=== PATIENT | female | born 1955 | race Caucasian/White ===

== ENCOUNTER → 2017-06-10 | Outpatient (CLI) | payer MEDICARE, SELFPAY ==
[~2017-06-10] MED LIST: ALBU90OI INH; ALEN70; ASPI325 PO; BUPR150ER PO; COMFORT PAC-MEL15 MG; CYCL10 PO; DULERA 100 MCG/13 GM INH; FIBER GUMMIES1 EACH PO; FLUT.05NI; HYDCHL25; LAVAP17G; LISHYD1012 PO; LISI5 PO; LOSA50; MONT10T PO; Omeprazole20 M1; Prilosec Otc20 MG; SIMV10 PO; WOMEN'S DAILY1 EACH PO; [UNRECOGNIZED DRUG - OTHER]
== END | disposition home or self-care (01) ==
LOC: LAB EV 14:18
DX: J02.9 Acute pharyngitis, unspecified (principal)
CPT/HCPCS: 87070

== ENCOUNTER 2017-06-18 11:57 | Day surgery (SDC) | payer MEDICARE, SELFPAY ==
[~2017-06-18] VITALS: Ht 172.7 cm; Wt 106.2 kg
[~2017-06-18 11:57] MED LIST changes: -ALEN70; -COMFORT PAC-MEL15 MG; -HYDCHL25; -LOSA50; -Omeprazole20 M1
[2017-06-18] MEDS ORDERED: ALEN70 (12:40)
[2017-06-18] MEDS ORDERED: COMFORT PAC-MEL15 MG (12:40)
[2017-06-18] MEDS ORDERED: HYDCHL25 (12:41)
[2017-06-18] MEDS ORDERED: Omeprazole20 M1 (12:41)
[2017-06-18] MEDS ORDERED: LOSA50 (12:42)
== END 2017-06-18 16:50 | disposition home or self-care (01) ==
LOC: ORSCSDS 11:57
PROVIDERS: Podiatrist Foot & Ankle Surgery
PROC: 0QBP0ZZ Excision of Left Metatarsal, Open Approach (ICD-10-PCS; principal; 2017-06-18 13:15)
PROC: 0JBR0ZX Excision of Left Foot Subcutaneous Tissue and Fascia, Open Approach, Diagnostic (ICD-10-PCS; principal; 2017-06-18 13:15)
DX: M67.472 Ganglion, left ankle and foot (principal); M77.32 Calcaneal spur, left foot; I10 Essential (primary) hypertension; E78.5 Hyperlipidemia, unspecified; G47.33 Obstructive sleep apnea (adult) (pediatric); I25.10 Atherosclerotic heart disease of native coronary artery without angina pectoris; J44.9 Chronic obstructive pulmonary disease, unspecified; E03.9 Hypothyroidism, unspecified; K21.9 Gastro-esophageal reflux disease without esophagitis; Z87.891 Personal history of nicotine dependence; Z79.899 Other long term (current) drug therapy
CPT/HCPCS: 88304; J0171; J0690; J1100; J1885; J2250; J2405; J3010; J7120

== ENCOUNTER → 2018-08-26 | Outpatient (CLI) | payer MEDICARE ==
[~2018-08-26] MED LIST changes: +ALEN70; +COMFORT PAC-MEL15 MG; +HYDCHL25; +LOSA50; +Omeprazole20 M1
== END | disposition home or self-care (01) ==
LOC: LAB 16:54 → LAB SHORT 16:54
DX: J02.9 Acute pharyngitis, unspecified (principal)
CPT/HCPCS: 87070

== ENCOUNTER 2019-03-09 09:09 | Day surgery (SDC) | payer MEDICARE ==
[~2019-03-09] VITALS: Ht 170.2 cm; Wt 106.1 kg
--- NOTE | 2019-03-09 10:33 | NUR ---
03/09/19 1033 Lizzeth Dominguez LIDOCAINE 4% NEBULIZER 5CC'S GIVEN PRE PROCEDURE ORDERED BY MD CRAWLEY.
== END 2019-03-09 11:43 | disposition home or self-care (01) ==
LOC: ORSCSDS 09:09
PROVIDERS: Student in an Organized Health Care Education/Training Program
PROC: 0DB78ZX Excision of Stomach, Pylorus, Via Natural or Artificial Opening Endoscopic, Diagnostic (ICD-10-PCS; principal; 2019-03-09 10:30)
PROC: 0DB48ZX Excision of Esophagogastric Junction, Via Natural or Artificial Opening Endoscopic, Diagnostic (ICD-10-PCS; principal; 2019-03-09 10:30)
DX: K21.9 Gastro-esophageal reflux disease without esophagitis (principal); R13.10 Dysphagia, unspecified; K22.70 Barrett's esophagus without dysplasia; K31.7 Polyp of stomach and duodenum; K29.70 Gastritis, unspecified, without bleeding; I49.9 Cardiac arrhythmia, unspecified; R00.1 Bradycardia, unspecified; I25.10 Atherosclerotic heart disease of native coronary artery without angina pectoris; J44.9 Chronic obstructive pulmonary disease, unspecified; Z87.891 Personal history of nicotine dependence; G47.33 Obstructive sleep apnea (adult) (pediatric); E78.5 Hyperlipidemia, unspecified; E66.01 Morbid (severe) obesity due to excess calories; Z68.36 Body mass index [BMI] 36.0-36.9, adult; Z79.899 Other long term (current) drug therapy
CPT/HCPCS: 88305; 88342; J2001; J2704; J7120

== ENCOUNTER 2020-03-13 07:34 | Day surgery (SDC) | payer MEDICARE ==
[~2020-03-13] VITALS: Ht 172.7 cm; Wt 109.0 kg
--- NOTE | 2020-03-13 07:50 | NUR ---
History, Chart, Medications and Allergies reviewed before start of procedure. Patient states colon prep results clear. Patient States Post-Procedure ride home has been arranged.
--- NOTE | 2020-03-13 08:37 | NUR ---
03/13/20 0837 Janice Krueger History, Chart, Medications and Allergies reviewed before start of procedure.Patient confirms NPO status and agrees with scheduled surgery.3-LEAD EKG REVIEWED WITH PHYSICIAN PRIOR TO START OF PROCEDURE.MONITOR INTACT WITH CONTINUOUS PULSE OXIMETRY AND INTERMITTENT BP.
--- NOTE | 2020-03-13 09:31 | NUR ---
Discharge instructions reviewed with patient. Patient verbalizes understanding. Copy given to patient to take home. PT TOLERATED APPLE JUICE WELL. SWELLING IMPROVED TO IV INFILTRATED SITE. ENCOURAGED PT TO USE HEAT IF DESIRED FOR SWELLING. Discharged via wheelchair to private car for ride home.
== END 2020-03-13 09:35 | disposition home or self-care (01) ==
LOC: ORSCMMR 07:34 → ORD 08:30 → ORSCMMR 08:30
PROVIDERS: Internal Medicine Gastroenterology
PROC: 0DBM8ZX Excision of Descending Colon, Via Natural or Artificial Opening Endoscopic, Diagnostic (ICD-10-PCS; principal; 2020-03-13 08:30)
PROC: 0DBL8ZX Excision of Transverse Colon, Via Natural or Artificial Opening Endoscopic, Diagnostic (ICD-10-PCS; principal; 2020-03-13 08:30)
DX: Z12.11 Encounter for screening for malignant neoplasm of colon (principal); Z86.010 Personal history of colon polyps; D12.4 Benign neoplasm of descending colon; J45.909 Unspecified asthma, uncomplicated; I10 Essential (primary) hypertension; E78.00 Pure hypercholesterolemia, unspecified; K22.70 Barrett's esophagus without dysplasia; Z79.899 Other long term (current) drug therapy; Z87.891 Personal history of nicotine dependence; E66.01 Morbid (severe) obesity due to excess calories; Z68.36 Body mass index [BMI] 36.0-36.9, adult
CPT/HCPCS: 88305; J2250; J3010; J7120

== ENCOUNTER 2020-03-28 11:13 | Day surgery (SDC) | payer MEDICARE ==
[~2020-03-28] VITALS: Ht 170.2 cm; Wt 107.0 kg
--- NOTE | 2020-03-28 02:50 | NUR ---
PATIENT WITH NAUSEA AND CONTINUED EPIGASTRIC AND SUB STERNAL CHEST PAIN, /10. ENGINEERING FACULTY NOTIFIED, STARTED THE IV PPI TONIGHT AND GAVE IV PHENERGAN FOR NAUSEA. PATIENT WAS ABLE TO SLEEP FOR APPROX 6.5 HOURS. SHE CONTINUES TO HAVE THE SAME PAIN. HER LT CHEST WALL IS FREE FROM VISIBLE HEMATOMA AND BLEEDING. PRESSURE DRESSING REMAINS ON THE PACER SITE. CALL LIGHT IN REACH. NO ACUTE CHANGES.
[~2020-03-28 11:13] MED LIST changes: +CALCIUM 500 +1 EAC3 PO; +FLONASE ALLERG9.9 M2; -HYDCHL25; +HYDCHL25 PO; -LOSA50; +LOSA50 PO; -Omeprazole20 M1; +Omeprazole20 M1 PO; +VITAMIN D325 MC3 PO
--- NOTE | 2020-03-28 15:13 | NUR ---
PT MEDICATED POST PACEMAKER INSERTION WITH MORPHINE 2 MG IVP FOR 9/10 CHEST PAIN WITH INSPIRATION. PLAN TO TRANSFER PT TO SURGICAL UNIT FOR OBSERVATION OVER NIGHT. LEFT ARM PLACED INTO SLING, ARM ELEVATED WITH SUPPORT OF PILLOW. PRESSURE DRESSING IN PLACE TO LEFT CHEST, WHERE PACEMAKER WAS PLACED.
--- NOTE | 2020-03-28 18:17 | NUR ---
SHIFT SUMMARY PT A&OX4, VSS, S/P DUAL CHAMBER PACEMAKER PLACED, DRESSING IN PLACE, SLING ON ARM, ELEVATED ON PILLOW. PAIN TREATED W/5 MG NORCO; PT STILL REPORTS 7/10 CHEST PAIN; DR AWARE. BRENDA SIPS, WAVES OF NAUSEA, NO EMESIS, ZOFRAN GIVEN PER EMAR X1. AMB SBA TO BRP, VOIDING WELL. WILL REPORT TO ONCOMING NOC RN.
[2020-03-29] MEDS ORDERED: Norco 5-325 Ta1 EACH PO (13:21)
[2020-03-29] MEDS ORDERED: ONDA4ODT MM (16:07)
--- NOTE | 2020-03-29 17:09 | NUR ---
DISCHARGE SUMMARY PT A&OX4, VSS, PAIN MANAGED WITH 5 MG NORCO, BRENDA PO, OCC NAUSEA TX'D WITH ZOFRAN PRN, LEFT FLOOR VIA WC WITH WELFARE ADMINISTRATOR TO GO HOME WITH WITH ALL PERSONAL POSSESSIONS INCLUDING DC INSTRUCTIONS INCLUDING DR WILCOX PACEMAKER IMPLANT PATIENT INSTRUCTIONS, 1 NARC SCRIPT, ZOFRAN SCRIPT FAXED TO [facility]. PT REP UNDERSTANDING THOSE INSTRUCTIONS. IV DC'D.
== END 2020-03-29 16:41 | disposition home or self-care (01) ==
LOC: MHTC 11:13 → PCU 14:45 → SURS 14:54 → MHTC 03-29 16:41
DX: I49.5 Sick sinus syndrome (principal); I10 Essential (primary) hypertension; E03.9 Hypothyroidism, unspecified; G47.33 Obstructive sleep apnea (adult) (pediatric); Z91.19 Patient's noncompliance with other medical treatment and regimen; Z79.899 Other long term (current) drug therapy; Z87.891 Personal history of nicotine dependence; Z88.1 Allergy status to other antibiotic agents; Z88.5 Allergy status to narcotic agent; Z88.8 Allergy status to other drugs, medicaments and biological substances
CPT/HCPCS: 33208; 71045; 71046; 76937; 93005; 93010; 99152; 99153; A9270-GY; C1785; C1894; C1898; J1644; J2250; J2270; J2405; J2550; J3010; J3370; J7040

== ENCOUNTER 2020-08-26 07:48 | Day surgery (SDC) | payer MEDICARE ==
[~2020-08-26] VITALS: Ht 172.7 cm; Wt 107.5 kg
[~2020-08-26 07:48] MED LIST changes: +Norco 5-325 Ta1 EACH PO; +ONDA4ODT MM
[2020-08-26] MEDS ORDERED: AMLO5 (08:31)
[2020-08-26] MEDS ORDERED: XYLIMELTS550 MG (08:33)
--- NOTE | 2020-08-26 11:01 | NUR ---
08/26/20 1101 Grace Torres PATIENT TO PACU VIA GURNEY. SHE OPENS EYES WHEN SPOKEN TO AND ANSWERS QUESTIONS APPROPRIATELY. SHE DENIES PAIN OR NAUSEA AT THIS TIME. PATIENT GOES BACK TO SLEEP AND SNORES WHEN NOT BEING STIMULATED
== END 2020-08-26 12:15 | disposition home or self-care (01) ==
LOC: ORSCSDS 07:48
PROVIDERS: Otolaryngology
PROC: 0GTH0ZZ Resection of Right Thyroid Gland Lobe, Open Approach (ICD-10-PCS; principal; 2020-08-26 09:00)
DX: E04.1 Nontoxic single thyroid nodule (principal); I10 Essential (primary) hypertension; J44.9 Chronic obstructive pulmonary disease, unspecified; K21.9 Gastro-esophageal reflux disease without esophagitis; E66.01 Morbid (severe) obesity due to excess calories; Z68.36 Body mass index [BMI] 36.0-36.9, adult; Z79.899 Other long term (current) drug therapy; Z87.891 Personal history of nicotine dependence
CPT/HCPCS: 88307; J1100; J2250; J2405; J2704; J2710; J3010; J7120

== ENCOUNTER → 2021-04-16 | Outpatient (CLI) | payer MEDICARE ==
[~2021-04-16] MED LIST changes: +AMLO5; +XYLIMELTS550 MG
== END ==
LOC: LAB 15:39 → LAB SHORT 15:39
DX: R22.41 Localized swelling, mass and lump, right lower limb (principal); D23.71 Other benign neoplasm of skin of right lower limb, including hip
CPT/HCPCS: 88305; 88312

== ENCOUNTER 2022-01-31 16:53 | Emergency (ER) | payer OTHER ==
[~2022-01-31] VITALS: Ht 170.2 cm; Wt 93.0 kg
[~2022-01-31 16:53] MED LIST changes: +CIPR500 PO; +HYDR1TAB94 PO; +TAMS.4ER PO
[2022-01-31 17:48] LABS: BASOPHILS ABSOLUTE AUTO 0.12 K/mm3 (0.00-0.23); BASOPHILS PERCENT AUTO 1 % (0-2); EOSINOPHILS ABSOLUTE AUTO 0.29 K/mm3 (0.00-0.68); EOSINOPHILS PERCENT AUTO 3 % (0-6); Hematocrit 42.2 % (33.0-51.0); Hemoglobin 14.1 g/dL (11.5-16.0); IMMATURE GRAN ABSOLUTE AUTO 0.06 K/mm3 (0.00-0.10); IMMATURE GRAN PERCENT AUTO 1 % (0-1); LYMPHOCYTES ABSOLUTE AUTO 0.65 K/mm3 (0.84-5.20); LYMPHOCYTES PERCENT AUTO 7 % (21-46); MONOCYTES ABSOLUTE AUTO 0.81 K/mm3 (0.16-1.47); MONOCYTES PERCENT AUTO 9 % (4-13); Mean Corpuscular HGB 30.5 pg (26.0-34.0); Mean Corpuscular HGB Conc 33.4 g/dL (31.5-36.5); Mean Corpuscular Volume 91 fL (80-100); Mean Platelet Volume 10.2 fL (9.1-12.4); NEUTROPHILS ABSOLUTE AUTO 7.54 K/mm3 (1.96-9.15); NEUTROPHILS PERCENT AUTO 80 % (41-73); Platelet Count 303 K/mm3 (150-400); RDW Coefficient Variation 14.5 % (11.7-14.2); RDW Standard Deviation 48.1 fL (35.1-46.3); Red Blood Cell Count 4.63 M/mm3 (3.80-5.20); White Blood Cell Count 9.47 K/mm3 (4.00-11.30)
[2022-01-31 18:03] LABS: Albumin/Globulin Ratio 1.2 (0.8-1.8); Bilirubin, Total 0.3 mg/dL (0.1-1.0); Bun/Creatinine Ratio 13.6 (12.0-20.0); Calcium, Blood 9.6 mg/dL (8.5-10.1); Creatinine, Blood 1.03 mg/dL (0.40-1.00); Globulin, Blood 3.2 g/dL (2.2-4.0); Potassium, Blood 3.3 mmol/L (3.5-5.5); Total Protein, Blood 7.2 g/dL (6.4-8.2)
[2022-01-31 18:15] LABS: Influenza A, PCR NEGATIVE (NEGATIVE); Influenza B, PCR NEGATIVE (NEGATIVE); Resp Syncytial Virus, PCR NEGATIVE (NEGATIVE)
[2022-01-31 20:22] LABS: SARS-Cov-2 (COVID-19) PCR, MMC POSITIVE (NEGATIVE)
[2022-01-31 22:49] LABS: Source, Urine Clean Catch
[2022-01-31 22:53] LABS: Bilirubin, Urine Neg (Neg); Blood, Urine Neg (Neg); Glucose Qualitative, Urine Neg (Neg); Ketones, Urine Neg (Neg); Leukocyte Esterase, Urine Neg (Neg); Nitrite, Urine Neg (Neg); Protein, Urine Neg (Neg); Specific Gravity, Urine 1.015 (1.003-1.022); Urobilinogen, Urine NORM (Normal)
[2022-01-31 22:54] LABS: Appearance, Urine Clear (Clear); Color, Urine Yellow (P-Yellow)
== END 2022-01-31 20:01 | disposition left against medical advice (07) ==
LOC: ER 16:53
PROVIDERS: Student in an Organized Health Care Education/Training Program
DX: U07.1 COVID-19 (principal); Z53.21 Procedure and treatment not carried out due to patient leaving prior to being seen by health care provider
CPT/HCPCS: 0241U; 36415; 80053; 81003; 85025

== ENCOUNTER 2022-05-25 06:59 | Day surgery (SDC) | payer OTHER ==
[~2022-05-25] VITALS: Ht 170.2 cm; Wt 95.3 kg
[2022-05-25] MEDS ORDERED: ELIQUIS5 M2 PO (07:24)
[2022-05-25] MEDS ORDERED: ATEN25 PO (07:25)
--- NOTE | 2022-05-25 08:22 | NUR ---
05/25/22 0822 Rex Coronel HISTORY, CHART, MEDICATIONS AND ALLERGIES REVIEWED BEFORE START OF PROCEDURE. PATIENT CONFIRMS NPO STATUS AND AGREES WITH SCHEDULED PROCEDURE. 3-LEAD EKG REVIEWED WITH PHYSICIAN PRIOR TO START OF PROCEDURE. MONITOR INTACT WITH CONTINUOUS PULSE OXIMETRY,CAPNOGRAPHY, 3-LEAD EKG, INTERMITTENT BP. SUPPLEMENTAL O2 TO BE TITRATED THROUGHOUT PROCEDURE TO MAINTAIN O2 SATURATION ABOVE 90%. PATIENT DETERMINED TO BE ASA APPROPRIATE FOR PROPOFOL SEDATION PRIOR TO START OF PROCEDURE BY
--- NOTE | 2022-05-25 08:31 | NUR ---
RECIEVED PATIENT VSS GIVEN FIRST DRINK OF WATER AND WARM BLANKET.
--- NOTE | 2022-05-25 08:54 | NUR ---
Discharge instructions reviewed with patient. Patient verbalizes understanding. Copy given to patient to take home. Discharged via wheelchair to private car for ride home.
== END 2022-05-25 22:59 | disposition home or self-care (01) ==
LOC: ORSCMMR 06:59 → ORD 08:00 → ORSCMMR 22:59
PROVIDERS: Internal Medicine Gastroenterology
PROC: 0DB48ZX Excision of Esophagogastric Junction, Via Natural or Artificial Opening Endoscopic, Diagnostic (ICD-10-PCS; principal; 2022-05-25 08:00)
PROC: 0DB98ZX Excision of Duodenum, Via Natural or Artificial Opening Endoscopic, Diagnostic (ICD-10-PCS; principal; 2022-05-25 08:00)
PROC: 0DB78ZX Excision of Stomach, Pylorus, Via Natural or Artificial Opening Endoscopic, Diagnostic (ICD-10-PCS; principal; 2022-05-25 08:00)
DX: K22.70 Barrett's esophagus without dysplasia (principal); K21.9 Gastro-esophageal reflux disease without esophagitis; J45.909 Unspecified asthma, uncomplicated; E78.00 Pure hypercholesterolemia, unspecified; I48.91 Unspecified atrial fibrillation; Z79.01 Long term (current) use of anticoagulants; F17.210 Nicotine dependence, cigarettes, uncomplicated; I10 Essential (primary) hypertension; Z79.899 Other long term (current) drug therapy
CPT/HCPCS: 88305; 88342; A9270; J2704; J7120

== ENCOUNTER 2022-11-22 18:45 | Emergency (ER) | payer OTHER ==
[~2022-11-22] VITALS: Ht 170.2 cm; Wt 104.3 kg
[~2022-11-22 18:45] MED LIST changes: +ATEN25 PO; +ELIQUIS5 M2 PO
[2022-11-22 19:22] LABS: BASOPHILS ABSOLUTE AUTO 0.13 K/mm3 (0.00-0.23); BASOPHILS PERCENT AUTO 2 % (0-2); EOSINOPHILS ABSOLUTE AUTO 0.37 K/mm3 (0.00-0.68); EOSINOPHILS PERCENT AUTO 4 % (0-6); Hematocrit 41.9 % (33.0-51.0); Hemoglobin 14.3 g/dL (11.5-16.0); IMMATURE GRAN ABSOLUTE AUTO 0.05 K/mm3 (0.00-0.10); IMMATURE GRAN PERCENT AUTO 1 % (0-1); LYMPHOCYTES ABSOLUTE AUTO 2.74 K/mm3 (0.84-5.20); LYMPHOCYTES PERCENT AUTO 31 % (21-46); MONOCYTES ABSOLUTE AUTO 0.75 K/mm3 (0.16-1.47); MONOCYTES PERCENT AUTO 8 % (4-13); Mean Corpuscular HGB 29.4 pg (26.0-34.0); Mean Corpuscular HGB Conc 34.1 g/dL (31.5-36.5); Mean Corpuscular Volume 86 fL (80-100); Mean Platelet Volume 10.2 fL (9.1-12.4); NEUTROPHILS PERCENT AUTO 55 % (41-73); Platelet Count 320 K/mm3 (150-400); RDW Coefficient Variation 13.8 % (11.7-14.2); RDW Standard Deviation 43.8 fL (35.1-46.3); Red Blood Cell Count 4.86 M/mm3 (3.80-5.20); White Blood Cell Count 8.94 K/mm3 (4.00-11.30)
[2022-11-22 19:39] LABS: Albumin, Blood 3.7 g/dL (3.4-5.0); Albumin/Globulin Ratio 1.2 (0.8-1.8); Bilirubin, Total 0.2 mg/dL (0.1-1.0); Bun/Creatinine Ratio 12.1 (12.0-20.0); Calcium, Blood 8.9 mg/dL (8.5-10.1); Creatinine, Blood 0.99 mg/dL (0.40-1.00); Globulin, Blood 3.1 g/dL (2.2-4.0); Potassium, Blood 3.3 mmol/L (3.5-5.5); Total Protein, Blood 6.8 g/dL (6.4-8.2)
[2022-11-22 21:33] LABS: Magnesium, Blood 2.1 mg/dL (1.6-2.4)
[2022-11-22 21:34] LABS: Thyroid Stimulating Hormone 3.17 uIU/mL (0.360-4.800)
[2022-11-22 22:29] LABS: Source, Urine Clean Catch
[2022-11-22 23:00] VITALS: BP 102/66
[2022-11-22 23:24] LABS: Appearance, Urine Clear (Clear); Bilirubin, Urine Neg (Neg); Blood, Urine Neg (Neg); Color, Urine Yellow (P-Yellow); Glucose Qualitative, Urine Neg (Neg); Ketones, Urine Neg (Neg); Leukocyte Esterase, Urine Neg (Neg); Nitrite, Urine Neg (Neg); Protein, Urine Neg (Neg); Specific Gravity, Urine 1.015 (1.003-1.022); Urobilinogen, Urine NORM (Normal); pH, Urine 6.5 (5.0-8.0)
== END 2022-11-23 00:06 | disposition home or self-care (01) ==
LOC: ER 18:45
PROVIDERS: Emergency Medicine; Student in an Organized Health Care Education/Training Program
DX: I48.91 Unspecified atrial fibrillation (principal); Z88.8 Allergy status to other drugs, medicaments and biological substances; Z88.5 Allergy status to narcotic agent; Z79.899 Other long term (current) drug therapy; K21.9 Gastro-esophageal reflux disease without esophagitis; J45.909 Unspecified asthma, uncomplicated; I10 Essential (primary) hypertension; E78.00 Pure hypercholesterolemia, unspecified; Z87.891 Personal history of nicotine dependence
CPT/HCPCS: 71046; 80053; 81003; 83735; 84443; 84484; 85025; 93005; 93010; 99285-25; A9270

== ENCOUNTER 2023-12-05 13:50 | Emergency (ER) | payer OTHER ==
[~2023-12-05] VITALS: Ht 170.2 cm; Wt 113.4 kg
[2023-12-05 14:03] VITALS: BP 149/80
[2023-12-05] MEDS ORDERED: Norco 5-325 Ta1 EACH PO (15:10)
[2023-12-05] MEDS ORDERED: HYDROcodone 5-APAP 325 TAB PO ONE (15:10)
== END 2023-12-05 15:25 | disposition home or self-care (01) ==
LOC: ER 13:50
DX: M25.571 Pain in right ankle and joints of right foot (principal); K21.9 Gastro-esophageal reflux disease without esophagitis; I10 Essential (primary) hypertension; E78.00 Pure hypercholesterolemia, unspecified; I48.91 Unspecified atrial fibrillation; W01.0XXA Fall on same level from slipping, tripping and stumbling without subsequent striking against object, initial encounter; Z87.891 Personal history of nicotine dependence; Z79.899 Other long term (current) drug therapy; Z88.5 Allergy status to narcotic agent; Z88.8 Allergy status to other drugs, medicaments and biological substances; Z88.1 Allergy status to other antibiotic agents
CPT/HCPCS: 73610; 99283-25; A9270

== ENCOUNTER 2024-04-18 08:59 | Day surgery (SDC) | payer OTHER ==
[~2024-04-18] VITALS: Ht 170.2 cm; Wt 115.8 kg
--- NOTE | 2024-04-18 07:09 | NUR ---
04/18/24 0709 Zenia Hinds WITH [facility]. SEE ANESTHESIA RECORDS.
[~2024-04-18 08:59] MED LIST changes: +GABA100 PO
[2024-04-18] MEDS ORDERED: NS 500 ML IV SCH (10:15)
--- NOTE | 2024-04-18 10:25 | NUR ---
PT TO DAY SURGERY FOR COLONOSCOPY. CHART REVIEWED. PLAN OF CARE DISCUSSED WITH PT. PT HAS RIDE HOME PLANNED.
[2024-04-18 10:31] VITALS: BP 124/74
[2024-04-18] MEDS ORDERED: propofoL 40 ML IV ONE (11:43)
[2024-04-18 12:21] VITALS: BP 100/65
[2024-04-18 12:30] VITALS: BP 112/80
--- NOTE | 2024-04-18 12:30 | NUR ---
Discharge instructions reviewed with patient. Patient verbalizes understanding. Copy given to patient to take home.
--- NOTE | 2024-04-18 12:42 | NUR ---
Discharged via wheelchair to private car for ride home.
== END 2024-04-18 12:44 | disposition home or self-care (01) ==
LOC: ORSCMMR 08:59 → ORD 10:30 → ORSCMMR 12:44
PROVIDERS: Internal Medicine Gastroenterology
PROC: 0DBK8ZX Excision of Ascending Colon, Via Natural or Artificial Opening Endoscopic, Diagnostic (ICD-10-PCS; principal; 2024-04-18 10:30)
PROC: 0DBL8ZX Excision of Transverse Colon, Via Natural or Artificial Opening Endoscopic, Diagnostic (ICD-10-PCS; principal; 2024-04-18 10:30)
DX: K62.5 Hemorrhage of anus and rectum (principal); K59.00 Constipation, unspecified; D12.3 Benign neoplasm of transverse colon; D12.2 Benign neoplasm of ascending colon; I48.91 Unspecified atrial fibrillation; K22.70 Barrett's esophagus without dysplasia; Z95.0 Presence of cardiac pacemaker; J45.909 Unspecified asthma, uncomplicated; I10 Essential (primary) hypertension; E78.00 Pure hypercholesterolemia, unspecified; G47.33 Obstructive sleep apnea (adult) (pediatric); K21.9 Gastro-esophageal reflux disease without esophagitis; E66.9 Obesity, unspecified; Z68.41 Body mass index [BMI] 40.0-44.9, adult; F17.210 Nicotine dependence, cigarettes, uncomplicated; Z79.01 Long term (current) use of anticoagulants; Z79.899 Other long term (current) drug therapy
CPT/HCPCS: 88305; J2704; J7040

== ENCOUNTER 2024-04-24 11:19 | Emergency (ER) | payer OTHER ==
[~2024-04-24] VITALS: Ht 170.2 cm; Wt 113.4 kg
[2024-04-24 11:59] VITALS: BP 145/98
[2024-04-24] MEDS ORDERED: Percocet 5-3251 EACH PO (13:55)
== END 2024-04-24 14:21 | disposition home or self-care (01) ==
LOC: ER 11:19
DX: R07.81 Pleurodynia (principal); K21.9 Gastro-esophageal reflux disease without esophagitis; Z79.899 Other long term (current) drug therapy; Z79.01 Long term (current) use of anticoagulants; Z88.5 Allergy status to narcotic agent; Z88.8 Allergy status to other drugs, medicaments and biological substances; Z95.0 Presence of cardiac pacemaker; Z87.891 Personal history of nicotine dependence; W01.0XXA Fall on same level from slipping, tripping and stumbling without subsequent striking against object, initial encounter
CPT/HCPCS: 71046; 99283-25

== ENCOUNTER 2024-11-14 10:55 | Emergency (ER) | payer OTHER ==
[~2024-11-14] VITALS: Ht 170.2 cm; Wt 117.9 kg
[~2024-11-14 10:55] MED LIST changes: +Percocet 5-3251 EACH PO
[2024-11-14] MEDS ORDERED: Ondansetron HCl 2 MG / ML 2ML Vial IV ONE (11:25)
[2024-11-14 12:10] LABS: BASOPHILS ABSOLUTE AUTO 0.17 K/mm3 (0.00-0.23); BASOPHILS PERCENT AUTO 2 % (0-2); EOSINOPHILS ABSOLUTE AUTO 0.44 K/mm3 (0.00-0.68); EOSINOPHILS PERCENT AUTO 4 % (0-6); Hematocrit 45.4 % (33.0-51.0); Hemoglobin 15.4 g/dL (11.5-16.0); IMMATURE GRAN ABSOLUTE AUTO 0.08 K/mm3 (0.00-0.10); IMMATURE GRAN PERCENT AUTO 1 % (0-1); LYMPHOCYTES ABSOLUTE AUTO 2.47 K/mm3 (0.84-5.20); LYMPHOCYTES PERCENT AUTO 22 % (21-46); MONOCYTES ABSOLUTE AUTO 0.95 K/mm3 (0.16-1.47); MONOCYTES PERCENT AUTO 9 % (4-13); Mean Corpuscular HGB Conc 33.9 g/dL (31.5-36.5); Mean Corpuscular Volume 86 fL (80-100); NEUTROPHILS ABSOLUTE AUTO 7.04 K/mm3 (1.96-9.15); NEUTROPHILS PERCENT AUTO 63 % (41-73); NRBC ABSOLUTE 0.00 K/mm3 (0.00-0.02); NRBC Auto 0.0 /100 WBC (0.0-0.2); Platelet Count 417 K/mm3 (150-400); RDW Coefficient Variation 15.5 % (11.7-14.2); RDW Standard Deviation 48.0 fL (35.1-46.3)
[2024-11-14 12:37] LABS: Alanine Aminotransfer (ALT/SGP 116.0 U/L (12-78); Albumin, Blood 4.0 g/dL (3.4-5.0); Albumin/Globulin Ratio 1.0 (0.8-1.8); Anion Gap 10.0 mmol/L (3-11); Aspartate Aminotrans (AST/SGOT 124.0 U/L (12-37); Bilirubin, Total 0.8 mg/dL (0.1-1.0); Blood Urea Nitrogen 16.0 mg/dL (8-24); CO2, Blood 27.0 mmol/L (21-32); Calcium, Blood 9.6 mg/dL (8.5-10.1); Chloride, Blood 103.0 mmol/L (98-108); Creatinine, Blood 1.15 mg/dL (0.40-1.00); Globulin, Blood 4.0 g/dL (2.2-4.0); Glucose, Blood 125.0 mg/dL (70-99); Potassium, Blood 2.7 mmol/L (3.5-5.5); Sodium, Blood 137.0 mmol/L (136-145); Total Protein, Blood 8.0 g/dL (6.4-8.2)
[2024-11-14 13:48] VITALS: BP 102/77
[2024-11-14] MEDS ORDERED: POTCHL20ER PO (17:17)
== END 2024-11-14 17:27 | disposition home or self-care (01) ==
LOC: ER 10:55
PROVIDERS: Emergency Medicine
DX: E87.6 Hypokalemia (principal); Z88.5 Allergy status to narcotic agent; Z88.8 Allergy status to other drugs, medicaments and biological substances; Z79.899 Other long term (current) drug therapy
CPT/HCPCS: 71046; 80053; 83690; 84484; 85025; 93005; 93010; 96361; 96374; 99284-25; A9270; J2405; J7120

== ENCOUNTER → 2025-02-15 | Outpatient (CLI) | payer OTHER ==
[~2025-02-15] MED LIST changes: +POTCHL20ER PO
[2025-02-15 14:12] LABS: Anion Gap 10.0 mmol/L (3-11); CO2, Blood 25.0 mmol/L (21-32); Chloride, Blood 105.0 mmol/L (98-108); Potassium, Blood 4.3 mmol/L (3.5-5.5); Sodium, Blood 136.0 mmol/L (136-145)
== END ==
LOC: LAB SHORT 12:10 → LAB 12:10
PROVIDERS: Family Medicine
DX: E87.6 Hypokalemia (principal)
CPT/HCPCS: 80051